=== PATIENT | female | born 2000 | race Caucasian/White ===

== ENCOUNTER 2023-07-22 21:43 | Emergency (ER) | payer OTHER ==
[2023-07-22 21:48] VITALS: BP 124/71; PULSE 97; RESP 22; TEMP 98.6; BMI 24.1
[2023-07-22] MEDS ORDERED: IBUPROFEN 400 MG TABLET (FP) PO ONE (23:11)
[2023-07-22] MEDS ORDERED: ACETAMINOPHEN 325 MG TABLET (FP) ONE (23:11)
[2023-07-22] MEDS: IBUPROFEN 400 MG TABLET (FP) PO ONE (23:12)
[2023-07-22] MEDS: ACETAMINOPHEN 325 MG TABLET (FP) PO ONE (23:13)
== END 2023-07-23 00:08 | disposition home or self-care (01) ==
LOC: JER 21:43
DX: M79.671 Pain in right foot (principal); W20.8XXA Other cause of strike by thrown, projected or falling object, initial encounter
CPT/HCPCS: 73630-TC-RT-FY; 99283-25